=== PATIENT | female | born 1970 | race Caucasian/White ===

== ENCOUNTER → 2019-01-24 10:43 | Outpatient (CLI) | payer OTHER, SELFPAY ==
--- NOTE | 2019-01-24 15:45 | EMB_PTH ---
PATIENT: FIGUEROA MORILLO LOC: [facility] U#:[id number] AGE/SX: 54/F ROOM: RE01/24/[address]: Dr. Chele Ron MD : [id number] BED: DIS: SPEC #: [id number] RECD: 01/25/19 10:24 STATUS: EARLE MELODY #: [id number] HARIKA: 01/24/19 15:[address]: Cheel Ron DEPT: SURGICAL PATHOLOGY RECD BY: Leno Arellano Tissues: Endometrium, NOS Procedures: Surgery Specimen Level IV HEADER OPERATION: Endometrial biopsy PRE-OP DIAGNOSIS: N92.1 TISSUE SUBMITTED: Endometrial biopsy MICROSCOPIC DIAGNOSIS Endometrial biopsy: Strips of benign endometrial epithelium and superficial fragments of proliferative endometrium and blood clots. Negative for hyperplasia. See comment. DORIAN:ivanna 01/26/19 COMMENT Clinical correlation and appropriate follow up are necessary. MICROSCOPIC DESCRIPTION Slides are reviewed. GROSS DESCRIPTION Received in fixative is one container labeled with the patient's name and designated EM biopsy. The specimen consists of multiple fragments of hemorrhagic soft tissue mixed with mucoid tissue that in aggregate measure 3 x 2.5 x 0.3 cm. The specimen is totally submitted in one cassette. / DORIAN:ivanna 01/25/19 TC: CPT: 13444
[2019-01-27 20:46] LABS: HPV Reflexed? NOT INDICATED
== END ==
PROVIDERS: Referring Provider Obstetrics & Gynecology; Visit Provider Obstetrics & Gynecology
DX: Z12.4 Encounter for screening for malignant neoplasm of cervix (principal); N92.1 Excessive and frequent menstruation with irregular cycle
CPT/HCPCS: 88175; 88305; G0145